=== PATIENT | female | born 1975 | race Caucasian/White ===

== ENCOUNTER 2022-02-28 16:14 | Emergency (ER) | payer OTHER ==
[~2022-02-28] VITALS: Ht 162.6 cm; Wt 112.7 kg
[2022-02-28 16:24] VITALS: BP 158/60
[2022-02-28] MEDS ORDERED: ketorolac trometh inj. 60 MG/2 ML VIAL IM ONE (18:20)
== END 2022-02-28 18:31 | disposition home or self-care (01) ==
LOC: ER 16:16
DX: S06.0X0A Concussion without loss of consciousness, initial encounter (principal); R51.9 Headache, unspecified; M54.2 Cervicalgia; R42 Dizziness and giddiness; X58.XXXA Exposure to other specified factors, initial encounter; Y93.89 Activity, other specified; Y92.89 Other specified places as the place of occurrence of the external cause; Y99.8 Other external cause status
CPT/HCPCS: 70450; 96372; 99284; J1885

== ENCOUNTER 2022-03-29 14:48 | Emergency (ER) | payer OTHER ==
[~2022-03-29] VITALS: Ht 162.6 cm; Wt 112.7 kg
[2022-03-29 15:11] VITALS: BP 141/85
[2022-03-29] MEDS ORDERED: dexamethasone sod phosphate 10mg/ml inj IV STA (16:13)
[2022-03-29] MEDS ORDERED: LORazepam 2 mg/ml vial IV ONE (16:15)
[2022-03-29] MEDS ORDERED: metoclopramide 5 mg/ml inj IV ONE (16:15)
[2022-03-29] MEDS ORDERED: ketorolac trometh. 30mg/ml inj. IV ONE (16:15)
[2022-03-29] MEDS ORDERED: normal saline 1000ML IV soln IVB ONE (16:15)
[2022-03-29] MEDS ORDERED: famotidine/PF 10 mg/ml inj IV ONE (16:25)
[2022-03-29] MEDS ORDERED: hydrOXYzine 25 MG tablet PO ONE (17:25)
--- NOTE | 2022-03-29 17:27 | NUR ---
PO MED GIVEN
== END 2022-03-29 18:36 | disposition home or self-care (01) ==
LOC: ER 14:49
DX: F07.81 Postconcussional syndrome (principal); G43.909 Migraine, unspecified, not intractable, without status migrainosus
CPT/HCPCS: 96374; 96375; 99284; J1100; J1885; J2060; J2765; J3490; J7030; Q0177